=== PATIENT | male | born 1935 | race Caucasian/White ===

== ENCOUNTER 2016-10-09 12:41 | Emergency (ER) | payer MEDICARE ==
--- NOTE | 2016-10-09 13:03 | ER Document Report ---
ED Medical Screen (RME) - General Stated Complaint: BUMP ON ANKLE Time seen by provider: 13:02 Mode of Arrival: Ambulatory Information source: Patient Notes: 81-year-old male came to the emergency room to have a post traumatic hematoma drained. Almost did it at home himself. He bumped lightly 2 weeks ago and Got a large bruise 2 days later. He takes 81 mg aspirin per day. He also wants to start on a medicine for his prostate because he is urinating too often TRAVEL OUTSIDE OF THE [place] IN LAST 30 DAYS: No - Related Data Allergies/Adverse Reactions: Penicillins Allergy (Verified 10/09/16 13:06) Sulfa (Sulfonamide Antibiotics) Allergy (Verified 10/09/16 13:06) Physical Exam - Vital signs Vitals: Temp Pulse Resp BP Pulse Ox 98.5 F 81 20 139/75 H 98 10/09/16 13:04 10/09/16 13:04 10/09/16 13:04 10/09/16 13:04 10/09/16 13:04 Course - Vital Signs Vital signs: Temp Pulse Resp BP Pulse Ox 98.5 F 81 20 139/75 H 98 10/09/16 13:04 10/09/16 13:04 10/09/16 13:04 10/09/16 13:04 10/09/16 13:04
--- NOTE | 2016-10-09 14:00 | ER Document Report ---
ED General - General Chief Complaint: Ankle Pain Stated Complaint: BUMP ON ANKLE Time seen by provider: 14:45 Mode of Arrival: Ambulatory Information source: Patient Notes: 81-year-old male states he bumped anterior portion of his right ankle while walking 2 weeks ago. He says he developed swelling in the area at the time that he thought was a hematoma says that some of the blood he thinks collected into his second toe. He reports the swelling has gone down but still has some the lateral portion of the lower leg just above the ankle and presents asking that we put a needle into drainage. He reports he has not had any difficulty walking or bearing weight. He denies a fall or loss of consciousness and says he did not strike his head or suffer other injuries. Patient also presents requesting that we prescribe alfuzosin for urinary frequency because he has a friend in [place] who takes it for that. The patient denies dysuria or urinary urgency. He denies polyuria or polydipsia. Physical Exam: General: Alert, appears well. HEENT: Normocephalic. Atraumatic. Oropharynx clear. Respiratory: No respiratory distress. Clear and equal breath sounds bilaterally. Cardiovascular: Regular rate and rhythm. Abdominal: Normal Inspection. Soft, non-tender. No distension. Normal Bowel Sounds. Examination of right lower extremity shows a 3 x 3 cm hematoma to the lateral portion of the right leg just above the lateral malleolus. There is no Homans sign. There is no crepitus or fluctuance. There is no tenderness to palpation in a portion of the ankle or foot. He is only trace discomfort to palpation over the site of the swelling. There is no tenderness proximally. He has 2 posttussis pedis and posterior tibial pulses and brisk capillary refill to all toes. He has a trace amount of ecchymosis just proximal to the nail on the second toe but this is not tender. Neuro alert answers questions verbally mentation clear speech clear Psychological: Normal affect. Normal Mood. Skin: Warm. Dry. Normal color. TRAVEL OUTSIDE OF THE [place] IN LAST 30 DAYS: No - Related Data Allergies/Adverse Reactions: Penicillins Allergy (Verified 10/09/16 13:06) Sulfa (Sulfonamide Antibiotics) Allergy (Verified 10/09/16 13:06) Past Medical History - General Information source: Patient - Social History Smoking Status: Never Smoker Chew tobacco use (# tins/day): No Frequency of alcohol use: None Drug Abuse: None Family History: None Patient has suicidal ideation: No Patient has homicidal ideation: No Review of Systems - Review of Systems Constitutional: denies: Chills, Fever EENT: denies: Ear pain, Throat pain Cardiovascular: denies: Chest pain Respiratory: denies: Cough, Short of breath Gastrointestinal: denies: Abdominal pain, Nausea, Vomiting Genitourinary: See HPI Musculoskeletal: denies: Back pain Hematologic/Lymphatic: denies: Swollen glands Neurological/Psychological: denies: Weakness, Numbness Physical Exam - Vital signs Vitals: Temp Pulse Resp BP Pulse Ox 98.5 F 81 20 139/75 H 98 10/09/16 13:04 10/09/16 13:04 10/09/16 13:04 10/09/16 13:04 10/09/16 13:04 Course - Re-evaluation Re-evalutation: 10/09/16 13:58 Patient does not wish to have x-rays obtained. He also doesn't wish to provide a urinalysis. I discussed with patient that attempting to drain the hematoma would likely produce infection would not produce any improvement in his symptoms and would in all other respects be inadvisable. I also discussed with him that the absence of urinalysis prescribing the medication about which she inquires as also not advisable and that this would be a problem best managed by his primary care physician in any case. Patient is reassured use ice packs for the hematoma. He says he has a local physician currently and will provide him with a referral to combat engineer precision devices inspector/tester for outpatient follow-up. I think the hematoma conceivably might be related to a fibula fracture but since he is not reporting pain and is bearing weight well think this is likely on its way to resolving in fact he had one and doesn't require further treatment - Vital Signs Vital signs: Temp Pulse Resp BP Pulse Ox 98.5 F 81 20 139/75 H 98 10/09/16 13:04 10/09/16 13:04 10/09/16 13:04 10/09/16 13:04 10/09/16 13:04 Discharge - Discharge Clinical Impression: Hematoma Condition: Stable Disposition: HOME, SELF-CARE Additional Instructions: Contusion Your injury has resulted in a contusion -- a crushing of the deep tissues. No injury to important structures was detected during the physician's exam. Contusions vary in the amount of pain they cause, and in the length of time required for healing. Typically, the area will become bruised, and will remain painful to touch for two or three weeks. However, most patients are back to working and playing within a few days. After the initial period of rest and cold-packs, your symptoms (together with the doctor's recommendations) will determine how rapidly you can get back to full activity. Usually this means "do what feels okay, but don't do things that hurt." If re-examination was recommended, it's important to follow up as instructed. Call the doctor or return any time if pain increases, if swelling becomes severe, if you develop numbness or weakness in an injured extremity, or if any other alarming symptoms occur. Your being given a referral to a primary care doctor for routine follow-up of any medical problems you may have Referrals: SELENA YI MD [ACTIVE STAFF] - Follow up as needed
[2016-10-09 14:15] VITALS: BP 135/70
== END 2016-10-09 14:15 | disposition home or self-care (01) ==
LOC: ER 12:41
DX: S90.121A Contusion of right lesser toe(s) without damage to nail, initial encounter (principal); M25.571 Pain in right ankle and joints of right foot; X58.XXXA Exposure to other specified factors, initial encounter; Z88.0 Allergy status to penicillin; Z88.2 Allergy status to sulfonamides
CPT/HCPCS: 99283

== ENCOUNTER → 2016-10-24 | Outpatient (CLI) | payer MEDICARE ==
[2016-10-24 11:03] LABS: ALANINE AMINOTRANSFERASE 31 U/L (21-72); ALBUMIN 4.2 g/dL (3.5-5.0); ALKALINE PHOSPHATASE 86 U/L (38-126); ASPARTATE AMINO TRANSFERASE 18 U/L (17-59); BILIRUBIN,TOTAL 0.7 mg/dL (0.2-1.3); CHOLESTEROL 186.67 mg/dL (0-200); Direct HDL 36 mg/dL (>40); TOTAL PROTEIN 6.9 g/dL (6.3-8.2); TRIGLYCERIDES 126 mg/dL (<150)
[2016-10-24 11:14] LABS: DIRECT LDL 134 mg/dL (<100)
== END ==
LOC: OD 09:41
PROVIDERS: ATTEND Specialist
DX: I25.10 Atherosclerotic heart disease of native coronary artery without angina pectoris (principal); I34.0 Nonrheumatic mitral (valve) insufficiency; I10 Essential (primary) hypertension; E78.4 Other hyperlipidemia; R09.89 Other specified symptoms and signs involving the circulatory and respiratory systems; I73.9 Peripheral vascular disease, unspecified; Z95.1 Presence of aortocoronary bypass graft; Z79.899 Other long term (current) drug therapy
CPT/HCPCS: 36415; 80061; 80076

== ENCOUNTER → 2018-05-23 | Outpatient (CLI) | payer MEDICARE ==
[2018-05-23 11:09] LABS: ALANINE AMINOTRANSFERASE 28 U/L (21-72); ALBUMIN 3.9 g/dL (3.5-5.0); ALKALINE PHOSPHATASE 79 U/L (38-126); ASPARTATE AMINO TRANSFERASE 18 U/L (17-59); BILIRUBIN,DIRECT 0.2 mg/dL (0.0-0.4); BILIRUBIN,TOTAL 0.6 mg/dL (0.2-1.3); CHOLESTEROL 157.59 mg/dL (0-200); TOTAL PROTEIN 6.9 g/dL (6.3-8.2); TRIGLYCERIDES 97 mg/dL (<150)
[2018-05-23 11:20] LABS: DIRECT LDL 97 mg/dL (<100)
== END ==
LOC: OD 09:48
PROVIDERS: ATTEND Specialist
DX: E78.4 Other hyperlipidemia (principal); I25.10 Atherosclerotic heart disease of native coronary artery without angina pectoris; I34.0 Nonrheumatic mitral (valve) insufficiency; I73.9 Peripheral vascular disease, unspecified; R01.1 Cardiac murmur, unspecified; R09.89 Other specified symptoms and signs involving the circulatory and respiratory systems; E78.5 Hyperlipidemia, unspecified; Z98.62 Peripheral vascular angioplasty status; Z95.1 Presence of aortocoronary bypass graft; Z79.899 Other long term (current) drug therapy
CPT/HCPCS: 36415; 80061; 80076; 82947

== ENCOUNTER 2020-01-02 11:52 | Emergency (ER) | payer MEDICARE ==
--- NOTE | 2020-01-02 12:07 | ER Document Report ---
ED Medical Screen (RME) - General Stated Complaint: DIZZY Time Seen by Provider: 01/02/20 11:55 Primary Care Provider: SONALI BUSTOS MD [Primary Care Provider] - Follow up as needed Mode of Arrival: Wheelchair Information source: Patient Notes: 84-year-old disheveled male with no previous history. He reports he does not take any medications, presents to the emergency department with complaints of dizziness. He reports he has been getting some dizziness that comes and goes for the past couple of months but this was worse. He reports today he was at his friend's and was walking when he became dizzy. Denies nausea. Denies chest pain shortness of breath. Reports he did have an echo done by Dr. Mcneil this past week. When asked why he had an echo he reports he was supposed to get it a couple years ago but he never did so he went to get it done this week. Reports he lives at home by himself. He had orange juice and a brownie for breakfast. He reports sometimes he has cookies. No recent trips. No known covid 19 exposure. Denies chest pain. Denies shortness of breath. Denies fever. No obvious neuro deficits. Answering questions appropriately. I have greeted and performed a rapid initial assessment of this patient. A comprehensive ED assessment and evaluation of the patient, analysis of test results and completion of the medical decision making process will be conducted by additional ED providers. TRAVEL OUTSIDE OF THE [place] IN LAST 30 DAYS: No - Related Data Allergies/Adverse Reactions: Penicillins Allergy (Verified 01/02/20 12:00) Sulfa (Sulfonamide Antibiotics) Allergy (Verified 01/02/20 12:00) Doctor's Discharge - Discharge Referrals: SONALI BUSTOS MD [Primary Care Provider] - Follow up as needed
--- NOTE | 2020-01-02 12:57 | RADIOLOGY REPORT (SQ) ---
EXAM DESCRIPTION: CHEST SINGLE VIEW IMAGES COMPLETED DATE/TIME: 01/02/2020 12:45 pm REASON FOR STUDY: dizzy COMPARISON: None. EXAM PARAMETERS: NUMBER OF VIEWS: One view. TECHNIQUE: Single frontal radiographic view of the chest acquired. RADIATION DOSE: NA LIMITATIONS: None. FINDINGS: LUNGS AND PLEURA: No opacities, masses or pneumothorax. No pleural effusion. MEDIASTINUM AND HILAR STRUCTURES: No masses. Contour normal. HEART AND VASCULAR STRUCTURES: Heart normal in size. Normal vasculature. BONES: No acute findings. HARDWARE: Sternotomy hardware. Surgical clips overlie mediastinum. OTHER: No other significant finding. IMPRESSION: NO ACUTE RADIOGRAPHIC FINDING IN THE CHEST. TECHNICAL DOCUMENTATION: JOB ID: [id number] 2010 [id number]- All Rights Reserved Reading location - IP/workstation name: [email or web address]
[2020-01-02 13:15] LABS: ABSOLUTE BASOPHILS # (AUTO) 0.1 10^3/uL (0.0-0.2); ABSOLUTE EOSINOPHILS # (AUTO) 0.4 10^3/uL (0.0-0.6); ABSOLUTE LYMPHOCYTES (AUTO) 1.3 10^3/uL (0.5-4.7); ABSOLUTE MONOCYTES (AUTO) 0.4 10^3/uL (0.1-1.4); ABSOLUTE NEUT (AUTO) 4.6 10^3/uL (1.7-8.2); BASOPHILS % (AUTO) 1.1 % (0-2); EOSINOPHILS % (AUTO) 5.8 % (0-6); HEMATOCRIT 40.4 % (37.9-51.0); HEMOGLOBIN 14.1 g/dL (13.5-17.0); LYMPHOCYTES % (AUTO) 19.8 % (13-45); MEAN CORPUSCULAR HEMOGLOBIN 30.9 pg (27.0-33.4); MEAN CORPUSCULAR HGB CONC 34.9 g/dL (32.0-36.0); MEAN CORPUSCULAR VOLUME 89 fl (80-97); MONOCYTES % (AUTO) 5.4 % (3-13); PLATELET COUNT 198 10^3/uL (150-450); RED BLOOD COUNT 4.56 10^6/uL (4.35-5.55); RED CELL DISTRIBUTION WIDTH 13.5 % (11.5-14.0); SEGMENTED NEUTROPHILS % (AUTO) 67.9 % (42-78); TOTAL CELLS COUNTED % (AUTO) 100 %; WHITE BLOOD COUNT 6.8 10^3/uL (4.0-10.5)
[2020-01-02 13:37] LABS: ALBUMIN 3.9 g/dL (3.5-5.0); ALKALINE PHOSPHATASE 81 U/L (38-126); ANION GAP 8 (5-19); ASPARTATE AMINO TRANSFERASE 19 U/L (17-59); BILIRUBIN,DIRECT 0.2 mg/dL (0.0-0.4); BILIRUBIN,TOTAL 0.5 mg/dL (0.2-1.3); BLOOD UREA NITROGEN 17 mg/dL (7-20); CALCIUM 9.3 mg/dL (8.4-10.2); CARBON DIOXIDE 26 mmol/L (22-30); CHLORIDE 103 mmol/L (98-107); GLUCOSE 165 mg/dL (75-110); POTASSIUM 4.5 mmol/L (3.6-5.0); TOTAL PROTEIN 7.2 g/dL (6.3-8.2)
[2020-01-02 14:59] LABS: APPEARANCE,URINE CLEAR; BILIRUBIN,URINE NEGATIVE (NEGATIVE); COLOR,URINE YELLOW; GLUCOSE, URINE NEGATIVE (NEGATIVE); KETONES,URINE NEGATIVE (NEGATIVE); LEUKOCYTE ESTERASE,URINE NEGATIVE (NEGATIVE); NITRITE,URINE NEGATIVE (NEGATIVE); PROTEIN,URINE NEGATIVE (NEGATIVE); URINE SPECIFIC GRAVITY 1.021; UROBILINOGEN,URINE NEGATIVE mg/dL (<2.0)
--- NOTE | 2020-01-02 15:29 | RADIOLOGY REPORT (SQ) ---
EXAM DESCRIPTION: CT HEAD WITHOUT IMAGES COMPLETED DATE/TIME: 01/02/2020 3:11 pm REASON FOR STUDY: dizziness COMPARISON: None. TECHNIQUE: Axial images acquired through the brain without intravenous contrast. Images reviewed wi th bone, brain and subdural windows. Additional sagittal and coronal reconstructions were generated. Images stored on PACS. All CT scanners at this facility use dose modulation, iterative reconstruction, and/or weight based d osing when appropriate to reduce radiation dose to as low as reasonably achievable (ALARA). [facility]: Dose Right [facility]: CareDose [facility]: Dose Right [facility]: Teradose 4D [facility]: eMinor RADIATION DOSE: CT Rad equipment meets quality standard of care and radiation dose reduction techniq ues were employed. CTDIvol: 53.2 mGy. DLP: 1017 mGy-cm.mGy. LIMITATIONS: None. FINDINGS: VENTRICLES: Prominent. CEREBRUM: No masses. No hemorrhage. No midline shift. Areas of low density in the white matter mos t likely due to chronic micro-vascular ischemic change. No evidence for acute infarction. CEREBELLUM: No masses. No hemorrhage. No alteration of density. No evidence for acute infarction. EXTRAAXIAL SPACES: Age-related involutional change. No fluid collections. No masses. ORBITS AND GLOBE: No intra- or extraconal masses. Normal contour of globe without masses. CALVARIUM: No fracture. PARANASAL SINUSES: No fluid or mucosal thickening. SOFT TISSUES: No mass or hematoma. OTHER: Unerupted right maxillary molar. IMPRESSION: CHRONIC CHANGES OF ATROPHY AND MICROVASCULAR ISCHEMIA. NO ACUTE PROCESS. EVIDENCE OF ACUTE STROKE: NO. TECHNICAL DOCUMENTATION: JOB ID: [id number] Quality ID # [id number]: Final reports with documentation of one or more dose reduction techniques (e.g., Au tomated exposure control, adjustment of the mA and/or kV according to patient size, use of iterative reconstruction technique) 2010 [employer]- All Rights Reserved Reading location - IP/workstation name: [email or web address]
--- NOTE | 2020-01-02 16:52 | EKG REPORT ---
SEVERITY:- ABNORMAL ECG - SINUS RHYTHM FIRST DEGREE AV BLOCK INFERIOR INFARCT, OLD : Confirmed by: Chris Angeles 02-Jan-2020 16:51:06
[2020-01-02] MEDS ORDERED: ASPIRIN 81 MG TABLET, CHEWABLE PO ONE (16:54)
[2020-01-02] MEDS ORDERED: MECLIZINE HCL 25 MG TABLET PO ONE (16:55)
[2020-01-02 17:24] VITALS: BP 150/58
--- NOTE | 2020-01-02 20:18 | ER Document Report ---
Entered by MAU ALCANTARA SCRIBE 01/02/20 1407 Acting as scribe for:WENDY LUIS MD ED General - General Chief Complaint: Dizziness Stated Complaint: DIZZY Time Seen by Provider: 01/02/20 11:55 Primary Care Provider: SONALI BUSTOS MD [Primary Care Provider] - Follow up as needed Mode of Arrival: Wheelchair Notes: This 84-year-old male presents to the emergency department complaining of dizziness that began four months ago which comes and goes. Patient describes that he was meeting his friend for lunch when he felt dizzy. Patient said that this is a normal occurrence but during today's episode, his dizziness did not go away. Patient said that he is feeling better now. 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 Patient complains of leg pain, skin rash and phlegm. Patient denies headache. Patient mentions that he believes he has Mesothelioma because he saw the commercials and believes that he has similar symptoms. Patient says that he has had asbestos exposure since he was 13 years old in his home. TRAVEL OUTSIDE OF THE [place] IN LAST 30 DAYS: No - Related Data Allergies/Adverse Reactions: Penicillins Allergy (Verified 01/02/20 12:00) Sulfa (Sulfonamide Antibiotics) Allergy (Verified 01/02/20 12:00) Past Medical History - General Information source: Patient - Social History Smoking Status: Never Smoker Cigarette use (# per day): No Chew tobacco use (# tins/day): No Frequency of alcohol use: Rare Lives with: Alone Family History: Reviewed & Not Pertinent, CAD - Father Patient has suicidal ideation: No Patient has homicidal ideation: No - Past Medical History Cardiac Medical History: Reports: Hx Hypercholesterolemia Past Surgical History: Reports: Hx Coronary Artery Bypass Graft Review of Systems - Review of Systems Constitutional: No symptoms reported EENT: No symptoms reported Cardiovascular: See HPI, Dizziness Respiratory: See HPI, Sputum Gastrointestinal: No symptoms reported Genitourinary: No symptoms reported Male Genitourinary: No symptoms reported Musculoskeletal: See HPI, Other - Leg pain Skin: See HPI, Rash Hematologic/Lymphatic: No symptoms reported Neurological/Psychological: See HPI. denies: Headaches -: Yes All other systems reviewed and negative Physical Exam - Vital signs Vitals: Resp Pulse Ox 18 98 01/02/20 12:37 01/02/20 12:37 - Notes Notes: Physical Exam: General: Alert, appears well. HEENT: Normocephalic. Atraumatic. PERRL. Extraocular movements intact. Oropharynx clear. TM's are bulging bilaterally with left greater than the right. Left TM has minimal obstruction and right TM is clear. Neck: Supple. Non-tender. Respiratory: No respiratory distress. Clear and equal breath sounds bilaterally. Cardiovascular: Regular rate and rhythm. Abdominal: Normal Inspection. Non-tender. No distension. Normal Bowel Sounds. Back: No gross abnormalities. Extremities: Moves all four extremities. Upper extremities: Normal inspection. Normal ROM. Lower extremities: Normal inspection. No edema. Normal ROM. Neurological: Normal cognition. AAOx4. Normal speech. Psychological: Normal affect. Normal Mood. Skin: Warm. Dry. Normal color. Course - Re-evaluation Re-evalutation: 01/02/20 20:09 Patient resting comfortably during his time in the emergency department no furt her signs of dizziness complained about while while in the department. - Vital Signs Vital signs: Temp Pulse Resp BP Pulse Ox 18 150/58 H 99 01/02/20 17:17 01/02/20 17:17 01/02/20 17:17 - Laboratory Result Diagrams: 01/02/20 12:53 01/02/20 12:53 Laboratory results interpreted by me: 01/02/20 12:53 Sodium 136.7 L Est GFR (MDRD) Non-Af 55 L Glucose 165 H 01/02/20 20:14 Discussed at length with patient his laboratory evaluation which showed a troponin of 0.013 on the initial and on repeat it was 0.015 inasmuch as these numbers are low but they are still elevated over baseline I discussed with patient with his known coronary artery disease status post triple bypass graft 67 years ago despite having no chest pain that I thought it would be prudent the patient be admitted to the hospital for further evaluation and his presentation was dizziness which sometimes can be a result of coronary artery disease as well. Patient refused admission and signed out AGAINST MEDICAL ADVICE. 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 Patient promises to return to the emergency department if he has further cardiovascular problems. Patient understood the risks of having a heart attack or as a result of leaving without further work-up and patient was competent in that decision. - EKG Interpretation by Me Additional EKG results interpreted by me: 01/02/20 1213 Twelve-lead EKG shows sinus bradycardia rate of 57 first-degree AV block inferior infarct oh, and consider posterior wall involvement. 01/02/20 20:11 Twelve-lead EKG done today at 1213 shows a sinus bradycardia rhythm rate of 57 first-degree AV block and an old inferior infarct. Repeat EKG at 1720 shows normal sinus rhythm rhythm at rate of 59 atrial premature complex. Consider anterior septal infarct. Discharge - Discharge Clinical Impression: Dizziness, Elevated troponin, Labyrinthitis, bilateral Disposition: AGAINST MEDICAL ADVICE Referrals: SONALI BUSTOS MD [Primary Care Provider] - Follow up as needed I personally performed the services described in the documentation, reviewed and edited the documentation which was dictated to the scribe in my presence, and it accurately records my words and actions.
--- NOTE | 2020-01-04 10:58 | EKG REPORT ---
SEVERITY:- ABNORMAL ECG - SINUS RHYTHM ATRIAL PREMATURE COMPLEX CONSIDER ANTEROSEPTAL INFARCT : Confirmed by: Chris Angeles 04-Jan-2020 10:56:46
== END 2020-01-02 18:08 | disposition left against medical advice (07) ==
LOC: ER 11:52
DX: R42 Dizziness and giddiness (principal); R79.89 Other specified abnormal findings of blood chemistry; H83.03 Labyrinthitis, bilateral; M79.606 Pain in leg, unspecified; E78.00 Pure hypercholesterolemia, unspecified; Z88.0 Allergy status to penicillin; Z88.2 Allergy status to sulfonamides; Z95.1 Presence of aortocoronary bypass graft
CPT/HCPCS: 93005; 99284; 36415; 85025; 80053; 81001; 84484; 71045; 70450; 93010; A9270 ×2